=== PATIENT | male | born 1940 | race Caucasian/White ===

== ENCOUNTER → 2019-11-03 | Outpatient (CLI) | payer MEDICARE, OTHER ==
[~2019-11-03] MED LIST: ASPI325T8 PO; CELE200C PO; CYAN25008 PO; DONE5TAB7 PO; FOLI20CA PO; IOHEXOL 180 MG/ML 10 ML VIAL. ONE; LISI1TAB19 PO; Vitamin D3; methylPREDNISolone ACETATE 40 MG/ML VIAL. ONE; methylPREDNISolone ACETATE 80 MG/ML VIAL. ONE
--- NOTE | 2019-11-03 14:23 | PAIN ---
DATE OF SERVICE: 11/03/2019 INITIAL CONSULTATION FOR PAIN CLINIC CHIEF COMPLAINT: Mid upper back pain. HISTORY OF PRESENT ILLNESS: The patient is a 79-year-old male who presents with history of pain in the mid upper back and some in the low back, but mostly in the mid upper back since a fall about 2 years ago, he was carrying some items with heavy items in both hands walking down some newly carpeted stairs. He slipped and fell, landing on his back on his right side with fracture of 3 ribs by his report and a compression fracture in the thoracic spine. The patient reports it was severely painful at that time, and the pain is maintained over the past 2 years in the back itself and the ribs had healed. It is now a stabbing pain that is tingling, worse with activity, bending, stooping. 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 The patient reports it is a tingling pain in the back, stabbing, mostly painful and radiating to the right side as it did before. The patient did have CT scan showing a markedly exaggerated thoracic kyphotic curvature in part due to stable marked anterior wedge compression deformity of the T11 vertebral body. The patient reports he has had physical therapy, he has done counseling, he has had exercise, which he is still doing; all of these have helped to some extent, but not relieving the pain. The patient not tried any other significant medications except [id number] Tylenol. The patient rates his disability rating from 0-10, 10 being the worst, is a 5 with family and home responsibilities and recreation, 4 with social activity, 10 with sexual behavior, 6 with occupation and self-care, and 3 with life support activities. Patient reports no loss of motor function. No radiation to lower extremities or the upper extremities, worse with standing, walking, changing positions, bending, stooping, and painting, does not awaken him from sleep at night, generally feels much better lying down. It does not affect his bowel or bladder control or his ability to walk. PAST MEDICAL HISTORY: Significant for hearing loss, cataracts, hypertension, weight loss, melanoma, dizziness, arthritis. PREVIOUS SURGERY: Include cataract extractions, appendectomy, a knee surgery in the past, and skin cancers excision. CURRENT MEDICATIONS: Include lisinopril, donepezil, aspirin, Celebrex, vitamin B12, vitamin D3, and folic acid. ALLERGIES: The patient has no known drug allergies. FAMILY HISTORY: Significant for no major medical problems or conditions that he lists. SOCIAL HISTORY: The patient does not drink alcohol, does not smoke, does not use any illegal, illicit or recreational drugs. He is and lives locally in [place], [place]. REVIEW OF SYSTEMS: The patient's review of systems is positive for those items mentioned in history of present illness. All systems reviewed and otherwise negative. It is complete, full and well documented on the patient's chart. PHYSICAL EXAMINATION: VITAL SIGNS: The patient's blood pressure is 128/72, pulse 79, respirations 18, temperature 98.4 degrees Fahrenheit, height is 5 feet 9 inches, weight is 122 pounds. GENERAL: The patient is awake, alert, oriented, appropriate, very pleasant demeanor. HEENT: Shows normocephalic, atraumatic. Extraocular movements are intact and symmetrical. Oral cavity shows mucous membranes moist and pink. Dentition is intact. NECK: Shows anterior throat supple without palpable lymphadenopathy noted. Swallow reflex symmetrical. CHEST: Shows normal on inspection. Breath sounds are clear bilaterally. HEART: Shows S1, S2 clear. No murmurs auscultated. ABDOMEN: Soft, nontender, nondistended. No palpable organomegaly is noted. No rebound or guarding demonstrated. BACK: Shows spine grossly in the midline. Exaggerated thoracic kyphosis, but moderately. Normal appearing lumbar lordotic curvature. Lumbar paraspinous muscle shows symmetrical on inspection, on palpation shows some moderate tenderness diffusely, but only diffusely throughout the upper, middle and lower distribution of paraspinous muscles with palpation over the thoracic paraspinous muscles and the spinous processes themselves as well as fairly significant tenderness in the low thoracic distribution at T10, T11 and T12 region with pressure over the exaggerated thoracic kyphotic spinous processes, but without radiation. Paraspinous musculature shows some moderate tenderness and are somewhat firm, more on the right than the left, but without significant asymmetry or hypertrophy and again no specific radiation with direct palpation as well. EXTREMITIES: The patient's lower extremities show deep tendon reflexes at 1+ in the patellar and tendo calcaneus tendons are equal. Motor exam is strong with 5/5 dorsiflexion, extension, quadriceps and hamstring flexion and symmetrical. Peripheral pulses are 1+. No peripheral edema is noted. Lower extremities are warm and dry to touch, equal in color and appearance. Straight leg raise noted to be negative for reproduction of any radicular symptoms bilaterally as is Gaenslen's and Kevin's maneuvers are negative bilaterally. IMPRESSION: 1. This is a 79-year-old male with approximate 2-year history of a fall with significant pain in mid back with history of compression fracture at T11 anterior wedging. 2. CT scan of thoracic spine as noted. 3. Hypertension. 4. Arthritis. PLAN: Options were discussed with the patient including conservative medical managements, physical therapies and interventional techniques. He would like to pursue interventional techniques. We discussed a thoracic epidural steroid injection using description as well as anatomical models to describe the procedure. Risks were then discussed including, but not limited to bleeding, infection, possibility of epidural hematoma, subsequent neurological compromise, dural puncture, headaches, spinal cord and/or nerve damage, side effects of steroid medication and poor results regarding pain control. The patient understands and wished to proceed. The patient will return to clinic in approximately 2 weeks for followup. He was counseled on return appointment, activity level and side effects to be aware of. DIAGNOSES: Thoracic radiculopathy with compression fracture at T11. PROCEDURE: Thoracic epidural steroid injection using sterile prep and drape and using C-arm fluoroscopic guidance, local anesthetic at the T11-T12 level. MEDICATION INJECTED: A total of 10 mL of preservative-free normal saline and 2 mL of contrast and 120 mg Depo-Medrol. CONDITION AT DISCHARGE: Stable. The patient tolerated the procedure well, had no complications. AMINATA RIGGS MD DR: ARABELLA/jose manuel JOB#: [id number] / [id number] SABA Harris MD
== END ==
LOC: PNCL 08:39
PROVIDERS: ATTEND Anesthesiology
DX: M54.14 Radiculopathy, thoracic region (principal); M48.54XA Collapsed vertebra, not elsewhere classified, thoracic region, initial encounter for fracture; I10 Essential (primary) hypertension; Z87.39 Personal history of other diseases of the musculoskeletal system and connective tissue; Z98.42 Cataract extraction status, left eye; Z98.41 Cataract extraction status, right eye; Z96.1 Presence of intraocular lens; Z85.828 Personal history of other malignant neoplasm of skin
CPT/HCPCS: 62321; J1030; J1040; Q9965

== ENCOUNTER → 2019-11-11 | Outpatient (CLI) | payer MEDICARE, OTHER ==
[~2019-11-11] MED LIST changes: -IOHEXOL 180 MG/ML 10 ML VIAL. ONE; -methylPREDNISolone ACETATE 40 MG/ML VIAL. ONE; -methylPREDNISolone ACETATE 80 MG/ML VIAL. ONE
--- NOTE | 2019-11-11 18:53 | RAD ---
EXAM: PET W CT WHOLE BODY EXAM DATE: 11/11/2019 INDICATION: History of melanoma in the shoulders, abdomen and side of head. Patient has a lung nodule and experienced massive weight loss. RADIOPHARMACEUTICAL: 11.86 mCi of F-18 Fluorodeoxyglucose (FDG) I.V. via the right antecubital fossa. TECHNIQUE: Patient weight: 120 pounds. Following at least four-hour fasting, the patient's blood glucose was 100 mg/dl. Approximately 1 hour after administration of FDG, overlapping emission scanning was performed from the top of the head through the feet. A low-dose CT was performed for attenuation correction purposes and anatomic localization. Fused images of PET and CT were reviewed. Any standardized uptake values (SUV) reported are maximum values within a volume region of interest, expressed in gm/ml. COMPARISON: CT neck with IV contrast of 01/24/2018, chest abdomen and pelvis of 02/17/2019. FINDINGS: PET: There is high muscular background activity most conspicuous in the legs but no abnormal FDG uptake is identified that is suspicious for recurrence in the skin or more distant metastatic disease. CT: Redemonstrated is a chronic anterior wedge compression fracture at T11 with exaggerated thoracic kyphosis at this level. No listhesis. IMPRESSION: No abnormal FDG uptake suspicious for tumor recurrence or other FDG avid primary malignancy from the head through the feet. Electronically signed by: Nelli May MD (11/11/2019 6:50 PM) [id number]
== END ==
LOC: PETSC 08:51
PROVIDERS: ATTEND Family Medicine
DX: R22.2 Localized swelling, mass and lump, trunk (principal)
CPT/HCPCS: 78816; A9552

== ENCOUNTER → 2019-11-17 | Outpatient (CLI) | payer MEDICARE, OTHER ==
[~2019-11-17] MED LIST changes: +IOHEXOL 180 MG/ML 10 ML VIAL. ONE; +methylPREDNISolone ACETATE 40 MG/ML VIAL. ONE; +methylPREDNISolone ACETATE 80 MG/ML VIAL. ONE
--- NOTE | 2019-11-17 11:46 | PAIN ---
DATE OF SERVICE: 11/17/2019 PROGRESS NOTE FOR PAIN CLINIC DIAGNOSES: Thoracic radiculopathy with thoracic compression fracture. HISTORY OF PRESENT ILLNESS: The patient is a 79-year-old male who returns for followup status post thoracic epidural steroid injection x 1. The patient reports about 70% improvement with his pain in the back and radiating into the right flank. The patient reports it is much improved. He has been increasing his activity with greater ease and comfort, traveling with greater ease, doing household activities, walking greater distances, sleeping better at night. The patient reports it does not awaken him from sleep, even if he lies on his right side. The patient reports still some pain in the mid to the low back, but it is a dull sensation, which is much different and much improved from previous. The patient reports it is a 4 on a scale of 10 at its worst over the past week, 3 on average, 3 at its least and is a 3 today. The patient reports no new motor or sensory deficits, no new bowel or bladder incontinence or other complaints. The patient is quite pleased with his progress thus far, but still has some moderate pain that is dull in the same area of the mid low back. PHYSICAL EXAMINATION: VITAL SIGNS: The patient's blood pressure 141/73, pulse 80, respirations 18, temperature 97.8 degrees Fahrenheit, height is 5 feet 9 inches, weight is 123 pounds. GENERAL: The patient is awake, alert, oriented, appropriate, very pleasant demeanor. HEENT: Shows normocephalic, atraumatic. Extraocular movements are intact and symmetrical. Oral cavity shows mucous membranes moist and pink. Dentition is intact. NECK: Shows anterior throat supple without palpable lymphadenopathy noted. Swallow reflex symmetrical. CHEST: Shows normal on inspection. Breath sounds are clear bilaterally. HEART: Shows S1, S2 clear. No murmurs auscultated. ABDOMEN: Soft, nontender, nondistended. No palpable organomegaly is noted. No rebound or guarding demonstrated. BACK: Shows spine grossly in the midline. Slight exaggeration of thoracic kyphosis with some rightward scoliosis as well and some flattening of lumbar lordotic curvature and thoracic paraspinous muscle shows symmetrical on inspection, with palpation shows some moderate tenderness diffusely in the mid and lower distribution thoracic paraspinous muscles, also some very mild tenderness over the spinous processes in the low thoracic distribution apparently over the T10, T11 and T12 spinous processes, but only moderate with pain. The patient has good rotational motion of the lumbar spine and thoracic spine, both laterally as well as extension and flexion without significant increase in pain with these rotations and maneuvers. EXTREMITIES: The patient's lower extremities show deep tendon reflexes at 1+ in the patellar and tendo calcaneus tendons are equal. Motor exam is strong with 5/5 dorsiflexion, extension, quadriceps and hamstring flexion symmetrical. Peripheral pulses are 1+ posterior tibia. No peripheral edema is noted bilaterally. Options were discussed with the patient. The patient's old chart was reviewed as his current medication regimen updated. Current review of systems updated today as well and we will proceed with a second in this series of thoracic epidural steroid injection today. Risks were again discussed including, but not limited to bleeding, infection, possibility of epidural hematoma, subsequent neurological compromise, dural puncture, headaches, spinal cord and/or nerve damage, side effects of steroid medication and poor results regarding pain control. The patient understands and wished to proceed. The patient will return to clinic in approximately 2 weeks for followup. He was counseled on return appointment, activity level and side effects to be aware of. DIAGNOSES: Thoracic radiculopathy with thoracic compression fracture at T11. PROCEDURE: Thoracic epidural steroid injection at the T11-T12 level using C-arm fluoroscopic guidance under sterile prep and drape using local anesthetic. MEDICATION INJECTED: A total of 120 mg Depo-Medrol plus 10 mL preservative-free normal saline and 2 mL of contrast. CONDITION AT DISCHARGE: Stable. The patient tolerated the procedure well, had no complications. AMINATA RIGGS MD DR: ARABELLA/jose manuel JOB#: [id number] / [id number]
== END ==
LOC: PNCL 10:02
PROVIDERS: ATTEND Anesthesiology
DX: M54.14 Radiculopathy, thoracic region (principal); M48.54XA Collapsed vertebra, not elsewhere classified, thoracic region, initial encounter for fracture
CPT/HCPCS: 62321; J1030; J1040; Q9965

== ENCOUNTER → 2019-12-12 | Outpatient (CLI) | payer MEDICARE, BC, OTHER ==
[~2019-12-12] MED LIST changes: -IOHEXOL 180 MG/ML 10 ML VIAL. ONE; -methylPREDNISolone ACETATE 40 MG/ML VIAL. ONE; -methylPREDNISolone ACETATE 80 MG/ML VIAL. ONE
== END | disposition home or self-care (01) ==
LOC: LAB 13:19
PROVIDERS: ATTEND Internal Medicine Gastroenterology
DX: Z01.818 Encounter for other preprocedural examination (principal); Z11.59 Encounter for screening for other viral diseases; K59.00 Constipation, unspecified
CPT/HCPCS: U0003-CS

== ENCOUNTER → 2019-12-15 | Day surgery (SDC) | payer MEDICARE, OTHER ==
[~2019-12-15] MED LIST changes: +IV RINGERS,LACTATED 1000ML 1,000 ML IV ONE; +IV RINGERS,LACTATED 1000ML 1,000 ML IV SCH; +LIDOCAINE 2% PF 5 ML VIAL. ONE; -LISI1TAB19 PO; +LISI1TAB37 PO; +PROPOFOL 10 MG/ML (20ML) VIAL. IV ONE
[2019-12-15 13:39] VITALS: BP 116/60
== END | disposition home or self-care (01) ==
LOC: ENDOS 11:07
PROVIDERS: ATTEND Internal Medicine Gastroenterology
DX: K59.00 Constipation, unspecified (principal); K29.50 Unspecified chronic gastritis without bleeding; K57.30 Diverticulosis of large intestine without perforation or abscess without bleeding; I10 Essential (primary) hypertension; M19.90 Unspecified osteoarthritis, unspecified site; J45.909 Unspecified asthma, uncomplicated; R63.4 Abnormal weight loss; Z79.899 Other long term (current) drug therapy; Z98.890 Other specified postprocedural states
CPT/HCPCS: 43235; 45378; J2704

== ENCOUNTER → 2020-02-03 | Outpatient (CLI) | payer MEDICARE, BC, OTHER ==
[2019-12-15 13:39] VITALS: BP 116/60
[~2020-02-03] MED LIST changes: -IV RINGERS,LACTATED 1000ML 1,000 ML IV ONE; -IV RINGERS,LACTATED 1000ML 1,000 ML IV SCH; -LIDOCAINE 2% PF 5 ML VIAL. ONE; -PROPOFOL 10 MG/ML (20ML) VIAL. IV ONE
--- NOTE | 2020-02-03 17:59 | RAD ---
EXAM: PET W CT SKULL TO MIDTHIGH EXAM DATE: 02/03/2020 INDICATION: Reason: Abnormal weight loss. History of melanoma. RADIOPHARMACEUTICAL: 12.2 mCi of F-18 Fluorodeoxyglucose (FDG) I.V. via the left antecubital fossa. TECHNIQUE: Patient weight: 135 pounds. Following at least four-hour fasting, the patient's blood glucose was 80 mg/dl. Approximately 1 hour after administration of FDG, overlapping emission scanning was performed from the orbital meatal line through the pelvis. A low-dose CT was performed for attenuation correction purposes and anatomic localization. Fused images of PET and CT were reviewed. Any standardized uptake values (SUV) reported are maximum values within a volume region of interest, expressed in gm/ml. COMPARISON: PET CT of 11/11/2019 FINDINGS: PET: No abnormal FDG uptake in the head and neck, chest, abdomen or pelvis. No abnormal FDG uptake in the skeletal system. CT: Head and neck shows no adenopathy or mass. Chest shows no mass or adenopathy. Lungs are clear. No pleural effusion. Abdomen and pelvis show mild soft tissue stranding around the left greater than right kidneys, nonspecific but compatible with chronic kidney disease. Solid abdominal viscera otherwise are unremarkable. No adenopathy, mass, ascites, fluid collection or free air. Bowel shows no distention. There is colonic diverticuli most notable in the sigmoid colon and is equivocal wall thickening in the low rectum of uncertain significance. Bones show osteopenia and marked thoracic kyphosis related to chronic anterior wedge compression fracture in the lower thoracic spine at approximately T11. No aggressive appearing osseous lesions or evidence of acute fracture. IMPRESSION: No evidence of an FDG avid malignancy or other cause for abnormal weight loss noted. Recommend clinical correlation for questionable wall thickening in the distal rectum. Electronically signed by: Nelli May MD (02/03/2020 5:57 PM) [id number]
== END | disposition home or self-care (01) ==
LOC: PETSC 10:34
PROVIDERS: ATTEND Family Medicine
DX: S22.080A Wedge compression fracture of T11-T12 vertebra, initial encounter for closed fracture (principal); R63.4 Abnormal weight loss; K57.30 Diverticulosis of large intestine without perforation or abscess without bleeding; M40.294 Other kyphosis, thoracic region; M85.88 Other specified disorders of bone density and structure, other site; Z85.828 Personal history of other malignant neoplasm of skin; X58.XXXA Exposure to other specified factors, initial encounter; Y93.89 Activity, other specified; Y92.89 Other specified places as the place of occurrence of the external cause; Y99.8 Other external cause status
CPT/HCPCS: 78815; A9552